=== PATIENT | female | born 1975 | race Caucasian/White ===

== ENCOUNTER → 2016-10-22 | Outpatient (CLI) | payer BC, OTHER ==
[2016-10-22 12:02] LABS: CH 30.7; HCT 39.9 % (34.0-46.0); HDW 2.88; HGB 13.6 gm/dL (11.4-16.0); MCH 30.9 pg (25.0-35.0); MCV 90.9 fL (80.0-100.0); Mean Platelet Volume 7.4; RBC 4.39 m/uL (3.80-5.40); RDW 13.3 % (11.5-15.5); WBC 11.7 k/uL (3.8-10.6)
[2016-10-22 12:12] LABS: ALT 31 U/L (9-52); AST 13 U/L (14-36); Alkaline Phosphatase 43 U/L (38-126); Anion Gap 11 mmol/L; Blood Urea Nitrogen 15 mg/dL (7-17); Calcium 9.3 mg/dL (8.4-10.2); Carbon Dioxide 28 mmol/L (22-30); Chloride 103 mmol/L (98-107); Glucose 105 mg/dL (74-99); Iron 63 ug/dL (37-170); Non-African American GFR(MDRD) >60 (>60 ml/min/1.73 sqM); Potassium 4.2 mmol/L (3.5-5.1); Sodium 142 mmol/L (137-145); Total Bilirubin 0.4 mg/dL (0.2-1.3); Total Protein 7.3 g/dL (6.3-8.2)
[2016-10-22 12:21] LABS: % Iron Saturation 17.5 % (20-50); Total Iron Binding Capacity 360 ug/dL (265-497)
[2016-10-22 12:29] LABS: Follicle Stimulating Hormone 6.9 mIU/mL
[2016-10-22 13:02] LABS: Hemoglobin A1C 5.3 % (4.2-6.1)
[2016-10-22 16:48] LABS: DHEA Sulfate 45.1 ug/dL (26.0-430.0)
== END | disposition home or self-care (01) ==
LOC: LABWHC1 11:19
PROVIDERS: ATTEND Family Medicine
DX: Z00.00 Encounter for general adult medical examination without abnormal findings (principal); N92.6 Irregular menstruation, unspecified; L81.1 Chloasma; E66.01 Morbid (severe) obesity due to excess calories
CPT/HCPCS: 36415; 80053; 82627; 83001; 83036; 83525; 83527; 83540; 83550; 84402; 84439; 84443; 84481; 85027